=== PATIENT | female | born 1985 | race Caucasian/White ===

== ENCOUNTER 2018-05-03 13:35 | Emergency (ER) | payer OTHER ==
[2018-05-03] MEDS ORDERED: NS 0.9% 1000 ML* 1,000 ML IV ONE (16:11)
[2018-05-03] MEDS ORDERED: Metoclopramide IV* 5 MG/ML 2 ML VIAL IV ONE (16:11)
[2018-05-03] MEDS ORDERED: Ketorolac INJ* 30 MG/ML 1 ML VIAL IV PUSH ONE (16:11)
--- NOTE | 2018-05-03 16:24 | ED ---
Headache - HPI Summary HPI Summary: Patient is a 32-year-old female with a history of migraines, presenting to the ED with request for new medication. She states through her PCP, she has been given sumatriptan in the past which had been working for quite some time. However, she began to develop some tightness in her throat and numbness and tingling of her tongue over time and discontinued this medication. She was subsequently given Fioricet, which also worked for a very short period of time and not does not work anymore for her migraines. She believes her migraines are cycled with her menstrual cycle and are worse during that time. The last medication she was given was Toradol and Reglan which improved her symptoms. She was told if symptoms return, she might need to go to the ED. She comes to the ED today with a frontal migraine, worse to the right side behind the eye, which shoots through to the back of the occipital region. Endorses some photophobia and bilateral auras intermittently. She has never seen a neurologist. She denies any other symptoms or concerns. Denies any past medical history of significance. - History Of Current Complaint Chief Complaint: EDHeadache Stated Complaint: HEADACHE Time Seen by Provider: 05/03/18 15:22 Hx Obtained From: Patient Onset/Duration: Gradual Onset Initially Headache Was: Initial Pain Scale(0-10)= - 8 Timing: Constant Character: Throbbing, Migraine Location of Headache: Frontal, Occipital Aggravating Factor: Nothing Allevating Factors: Nothing Associated Signs And Symptoms: Negative - Risk Factors SAH Risk Factors: Negative Meningitis Risk Factors: Negative SDH Risk Factors: Negative Temporal Arteritis Risk Factors: Negative - Allergies/Home Medications Allergies/Adverse Reactions: Allergies Allergy/AdvReac Type Severity Reaction Status Date / Time Sulfa (Sulfonamide Allergy Severe Rash And Verified 05/03/18 13:42 Antibiotics) Itching sumatriptan Allergy Severe Anaphylatic Verified 05/03/18 13:42 Shock Home Medications: Home Medications Amitriptyline TAB* [Elavil TAB*] 10 mg PO BEDTIME 05/03/18 [History Confirmed ] Buspirone HCl 10 mg PO BID 05/03/18 [History Confirmed 05/03/18] Butalb/Acetamin/Caff TAB* [Fioricet TAB*] 1 tab PO Q4HR PRN 05/03/18 [History Confirmed 05/03/18] Citalopram Hydrobromide [Celexa] 10 mg PO DAILY 05/03/18 [History Confirmed 10/14] PMH/Surg Hx/FS Hx/Imm Hx Previously Healthy: Yes - Immunization History Hx Pertussis Vaccination: No Immunizations Up to Date: Yes Infectious Disease History: No Infectious Disease History: Denies: Traveled Outside the [place] in Last 30 Days - Social History Occupation: Employed Full-time Lives: With Family Alcohol Use: Occasionally Hx Substance Use: No Substance Use Type: Reports: None Hx Tobacco Use: No Smoking Status (MU): Unknown if Ever Smoked Review of Systems Constitutional: Negative Negative: Fever, Chills, Fatigue, Skin Diaphoresis Negative: Epistaxis, Dental Pain, Sore Throat Negative: Shortness Of Breath, Cough Negative: Vomiting, Diarrhea, Nausea Positive: no symptoms reported, see HPI Negative: Arthralgia, Myalgia Skin: Negative Positive: Headache All Other Systems Reviewed And Are Negative: Yes Physical Exam Triage Information Reviewed: Yes Vital Signs On Initial Exam: Initial Vitals Temp Pulse Resp BP Pulse Ox 97.7 F 76 16 117/72 100 05/03/18 13:38 05/03/18 13:38 05/03/18 13:38 05/03/18 13:38 05/03/18 13:38 Vital Signs Reviewed: Yes Appearance: Positive: Well-Appearing, Well-Nourished Skin: Positive: Warm, Skin Color Reflects Adequate Perfusion Head/Face: Positive: Normal Head/Face Inspection Eyes: Positive: EOMI, CATHLEEN, Conjunctiva Clear Neck: Positive: Supple Respiratory/Lung Sounds: Positive: Breath Sounds Present Cardiovascular: Positive: RRR Musculoskeletal: Positive: Normal, Strength/ROM Intact Neurological: Positive: Speech Normal Psychiatric: Positive: Affect/Mood Appropriate AVPU Assessment: Alert Diagnostics - Vital Signs Vital Signs Temp Pulse Resp BP Pulse Ox 05/03/18 13:38 97.7 F 76 16 117/72 100 - Laboratory Lab Statement: Any lab studies that have been ordered have been reviewed, and results considered in the medical decision making process. Headache Course/Dx - Course Course Of Treatment: On physical exam, patient appears well, non-diaphoretic. Discussed with the patient at length, treatment options. Patient is willing to try the Toradol and Reglan as first line along with fluids. Labs are not obtained as she is afebrile, vital signs are stable and she is otherwise healthy with no other complaints. This appears to be her typical migraine with her at home medications not improving symptoms. Patient is feeling improved after medications are given and is requesting discharge. She is prescribed these medications and states she will follow-up with her PCP. She is stable and nothing further is required at this time. - Diagnoses Provider Diagnoses: Migraine headache Discharge - Sign-Out/Discharge Documenting (check all that apply): Patient Departure - Discharge Plan Condition: Stable Disposition: HOME Prescriptions: Ketorolac TAB * [Toradol TAB *] 10 mg PO Q6H #16 tab Metoclopramide TAB* [Reglan TAB*] 10 mg PO Q6H PRN #20 tab PRN Reason: Nausea Patient Education Materials: Migraine Headache (ED) Referrals: Rosalind Mejia MD [Primary Care Provider] - Yanci Camacho MD [Medical Doctor] - Additional Instructions: Please follow back up with your PCP regarding further evaluation and treatment of her migraines I have given you a neurology referral Toradol 4 times daily as needed for migraine Reglan up to 4 times daily as needed - Billing Disposition and Condition Condition: STABLE Disposition: Home
[2018-05-03 17:27] VITALS: BP 110/67
== END 2018-05-03 17:26 | disposition home or self-care (01) ==
LOC: ED 13:35
DX: G43.909 Migraine, unspecified, not intractable, without status migrainosus (principal); Z88.2 Allergy status to sulfonamides; Z88.8 Allergy status to other drugs, medicaments and biological substances
CPT/HCPCS: 96374; 96375; 99282; J1885; J2765